=== PATIENT | female | born 1960 | race American Indian/Alaskan Native ===

== ENCOUNTER 2018-06-27 14:06 | Emergency (ER) | payer OTHER ==
[2018-06-27 14:11] VITALS: BMI 39.1
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
[2018-06-27 14:48] VITALS: RESP 18; TEMP 97.9
[2018-06-27 16:48] VITALS: PULSE 61; O2SAT 99
[2018-06-27 16:49] VITALS: BP 146/65
--- NOTE | 2018-06-27 17:12 | RAD ---
Date of service: 06/27/2018 PROCEDURE: Cervical Spine Radiographs. . Note that the study is somewhat limited due to partial obscuration of the odontoid by overlying occiput HISTORY: Pain. COMPARISON: None. FINDINGS: BONES: No acute compression - displaced fractures nor retropulsed fragments. The odontoid appears intact so far as can be seen within limitation of the exam. There is mild straightening of the normal cervical lordosis however vertebral bodies otherwise exhibit normal alignment DISC SPACES: [id number] multilevel degenerative spondylosis. . Changes include varying degrees of mild disc space narrowing, endplate eburnation with small anterolateral and tiny posterior osteophyte formation. SOFT TISSUES: Normal. No prevertebral soft tissue swelling. OTHER FINDINGS: None. IMPRESSION: Slightly limited study as above. No acute fracture seen. Mild -moderate degenerative spondylosis as above
== END 2018-06-27 16:48 | disposition home or self-care (01) ==
LOC: MERGE 14:06 → ED 14:06
DX: S16.1XXA Strain of muscle, fascia and tendon at neck level, initial encounter (principal); V49.9XXA Car occupant (driver) (passenger) injured in unspecified traffic accident, initial encounter; E78.5 Hyperlipidemia, unspecified; I10 Essential (primary) hypertension
CPT/HCPCS: 72050; 96372; 99285; J1885